=== PATIENT | male | born 1960 | race Caucasian/White ===

== ENCOUNTER → 2020-07-30 | Outpatient (CLI) | payer OTHER | LOC: HYPER 12:49 | PROVIDERS: ATTEND Emergency Medicine | DX: T81.49XA Infection following a procedure, other surgical site, initial encounter (principal); E66.01 Morbid (severe) obesity due to excess calories; I10 Essential (primary) hypertension; Z96.653 Presence of artificial knee joint, bilateral; Z68.42 Body mass index [BMI] 45.0-49.9, adult; Y92.238 Other place in hospital as the place of occurrence of the external cause; Y83.8 Other surgical procedures as the cause of abnormal reaction of the patient, or of later complication, without mention of misadventure at the time of the procedure ==